=== PATIENT | female | born 1960 | race Hispanic/Latino ===

== ENCOUNTER 2022-08-02 18:23 | Emergency (ER) | payer OTHER, SELFPAY ==
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
[2022-08-02 18:39] VITALS: BP 126/69; PULSE 71; RESP 16; TEMP 36.4; O2SAT 97
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
== END 2022-08-02 20:39 | disposition home or self-care (01) ==
PROVIDERS: Emergency Provider Nurse Practitioner; PCP Registered Nurse
DX: M17.12 Unilateral primary osteoarthritis, left knee (principal)
CPT/HCPCS: 73564; 99213; G0463